=== PATIENT | male | born 1995 | race Caucasian/White ===

== ENCOUNTER 2017-11-14 15:10 | Emergency (ER) | payer BC ==
[2017-11-14] MEDS ORDERED: DEXAMETHASONE SOD PHOS INJ 10 MG/1 ML VIAL IV ONE (16:42)
--- NOTE | 2017-11-14 16:42 | ER Document Report ---
HPI - HPI Pain Level: 4 Notes: Patient is a 22-year-old male with a H chronic back pain who presents the ED complaining of lower back pain status post injury prior to arrival. Patient states that he was doing squats while weightlifting when he felt a sharp pain in his lower back. Patient states that truncal movements make his pain worse. Patient feels a sharp pain with movement and muscle tightness. Patient states that the pain does not radiate. He denies any injections or surgeries to his lower back ache. He denies any smoking or IV drug use. Denies any other significant past medical history. Patient still eating and drinking without difficulties. He is urinating normally and has not lost control of any bowel or bladder. He denies any drug allergies. Denies any headache, fever, neck pain, URI, sore throat, chest pain, palpitations, syncope, cough, shortness of breath, wheeze, dyspnea, abdominal pain, nausea/vomiting/diarrhea, urinary retention, dysuria, hematuria, loss of control of bowel or bladder, numbness/ tingling, saddle anesthesia, muscle paralysis/weakness, or rash. - ROS Systems Reviewed and Negative: Yes All other systems reviewed and negative Past Medical History - Social History Smoking Status: Never Smoker Family History: Reviewed & Not Pertinent Past Surgical History: Reports: Orthopedic Surgery Vertical Provider Document - CONSTITUTIONAL Agree With Documented VS: Yes Notes: PHYSICAL EXAMINATION: GENERAL: Well-appearing, well-nourished and in no acute distress. LUNGS: Breath sounds clear to auscultation bilaterally and equal. No wheezes rales or rhonchi. HEART: Regular rate and rhythm without murmurs, rubs, gallops. ABDOMEN: Soft, nontender, nondistended abdomen. No guarding, no rebound. No masses appreciated. Normal bowel sounds present. No CVA tenderness bilaterally. No pulsatile mass Musculoskeletal: LE's b/l: FROM to passive/active. Strength 5+/5. No deficits noted. No bony tenderness of extremities. Back: FROM to passive/active. Strength 5+/5. No vertebral point tenderness, stepoffs, or deformities. No other bony tenderness, erythema, swelling, or ecchymosis. SLR negative b/l. + mild tenderness to the L-paraspinal mm b/l with spasming noted. Extremities: No cyanosis, clubbing, or edema b/l. Peripheral pulses 2+. Capillary refill less than 2 seconds. NEUROLOGICAL: Normal speech, ataxic gait. Normal sensory, motor exams. Reflexes 2+ b/l. PSYCH: Normal mood, normal affect. SKIN: Warm, Dry, normal turgor, no rashes or lesions noted. - RESPIRATORY O2 Sat by Pulse Oximetry: 97 Course - Re-evaluation Re-evalutation: 11/14/17 16:45 Patient is an afebrile, well-hydrated, 22-year-old male who presents to the ED with a low back strain based on H&P today. Vitals are stable. PE is otherwise unremarkable for any focal neurological deficits. No labs or imaging warranted at this time based on H&P. Patient is ambulatory without any difficulties currently. Toradol was given by EMS prior to arrival. I will give him Decadron today as well. I will send him home with a prescription for baclofen and naproxen. Low suspicion for any meningitis, fracture, expanding/ruptured AAA, cauda equina syndrome, epidural mass lesion/abscess, herniated disc causing severe spinal stenosis, or other systemic infection at this time. Patient is aware that his condition can change from initial presentation and that he needs monitor symptoms closely for any acute changes. Conservative measures otherwise for symptoms. Recheck with your PCM in 3-5 days. Consider consult orthopedics and physical therapy. Return to the ED with any worsening/ concerning symptoms otherwise as reviewed in discharge. Patient is in agreement. - Vital Signs Vital signs: Temp Pulse Resp BP Pulse Ox 98.5 F 101 H 18 131/65 H 97 11/14/17 15:17 11/14/17 15:17 11/14/17 15:17 11/14/17 15:17 11/14/17 15:17 Discharge - Discharge Clinical Impression: Low back strain Qualifiers: Encounter type: initial encounter Qualified Code(s): S39.012A - Strain of muscle, fascia and tendon of lower back, initial encounter Condition: Stable Disposition: HOME, SELF-CARE Instructions: Low Back Pain ([facility]), Muscle Strain ([facility]), Stretching Exercises for the Back ([facility]) Additional Instructions: Rest, Ice Tylenol/ibuprofen as needed Light stretches daily Strength exercises as able Moist heat and massage may help F/u with your PCP in 3-5 days for a recheck Consider consult(s) with Orthopedics/physical therapy for ongoing/worsening symptoms Return to the ED with any worsening symptoms and/or development of fever, headache, chest pain, palpitations, syncope, shortness of breath, trouble breathing, abdominal pain, n/v/d, blood in stool/urine, loss of control of bowel /bladder, urinary retention, muscle weakness/paralysis, saddle anesthesia, numbness/tingling, or other worsening symptoms that are concerning to you. Prescriptions: Baclofen [Baclofen 10 mg Tablet] 5 - 10 mg PO BID PRN #10 tablet PRN Reason: Naproxen 500 mg PO BID PRN #30 tablet PRN Reason: Forms: Elevated Blood Pressure, Return to Work Referrals: [facility] [Provider Group] - Follow up as needed
[2017-11-14 17:13] VITALS: BP 112/53
== END 2017-11-14 17:11 | disposition home or self-care (01) ==
LOC: ER 15:10
DX: S39.012A Strain of muscle, fascia and tendon of lower back, initial encounter (principal); X50.0XXA Overexertion from strenuous movement or load, initial encounter; Y93.B9 Activity, other involving muscle strengthening exercises
CPT/HCPCS: 99283; 96374; J1100

== ENCOUNTER → 2017-11-24 | Outpatient (CLI) | payer BC ==
--- NOTE | 2017-11-24 09:43 | RADIOLOGY REPORT (SQ) ---
EXAM DESCRIPTION: LUMBAR SPINE COMPLETE COMPLETED DATE/TIME: 11/24/2017 9:35 am REASON FOR STUDY: DORSALGIA, UNSPECIFIED M54.9 DORSALGIA, UNSPECIFIED COMPARISON: None. NUMBER OF VIEWS: Five views including obliques. TECHNIQUE: AP, lateral, oblique, and sacral radiographic images acquired of the lumbar spine. LIMITATIONS: None. FINDINGS: MINERALIZATION: Normal. SEGMENTATION: 5 non rib-bearing lumbar type vertebra. ALIGNMENT: Normal. VERTEBRAE: Maintained height. No fracture or worrisome bone lesion. DISCS: Preserved height. No significant osteophytes or end plate irregularity. POSTERIOR ELEMENTS: Pedicles and facets are intact. No pars defect or posterior arch defects. HARDWARE: None in the spine. PARASPINAL SOFT TISSUES: Normal. PELVIS: Intact as visualized. No fractures or worrisome bone lesions. SI joints intact. OTHER: No other significant finding. IMPRESSION: NORMAL 5 VIEW LUMBAR SPINE. TECHNICAL DOCUMENTATION: JOB ID: [id number] [employer]- All Rights Reserved
== END ==
LOC: OD 09:07
PROVIDERS: ATTEND Physician Assistant
DX: M54.9 Dorsalgia, unspecified (principal)
CPT/HCPCS: 72110